=== PATIENT | female | born 1980 | race Caucasian/White ===

== ENCOUNTER 2023-06-11 12:46 | Emergency (ER) | payer MEDICAID ==
[~2023-06-11] VITALS: Ht 157.5 cm; Wt 75.0 kg
[2023-06-11 13:07] VITALS: TEMP 98.2; O2SAT 98
[2023-06-11] MEDS ORDERED: ACETAMINOPHEN 325MG TABLET PO ONE ×2 (15:30→16:00)
[2023-06-11] MEDS ORDERED: CYCLOBENZAPRINE 10MG TABLET PO ONE (16:00)
[2023-06-11] MEDS ORDERED: KETOROLAC 30MG/ML VIAL IM ONE (16:00)
[2023-06-11] MEDS ORDERED: LIDOCAINE 5% PATCH TOP SCH (16:00)
[2023-06-11] MEDS ORDERED: LIDO700A15 TP (17:47)
[2023-06-11] MEDS ORDERED: TOPUD MT (17:47)
[2023-06-11] MEDS ORDERED: CYCL5TAB MT (17:47)
[2023-06-11 18:20] VITALS: BP 120/68; PULSE 78; RESP 20
== END 2023-06-11 18:23 | disposition home or self-care (01) ==
LOC: ER 12:46
DX: M54.12 Radiculopathy, cervical region (principal); E11.9 Type 2 diabetes mellitus without complications
CPT/HCPCS: 81025; 96372; 99284; J1885; Z7610